=== PATIENT | male | born 1975 | race American Indian/Alaskan Native ===

== ENCOUNTER 2019-06-06 11:03 | Outpatient (CLI) | payer OTHER ==
[2019-06-06 11:41] LABS: Hematocrit 31.6 % (35.5-45.6); Hemoglobin 10.5 gm/dl (11.8-15.2); Mean Corpuscular HGB Conc 33 % (32-34); Mean Corpuscular Volume 84 fl (84-94); Platelet Count 187 K/mm3 (140-440); Red Blood Count 3.77 M/mm3 (3.65-5.03)
[2019-06-06 11:50] LABS: Red Cell Distribution Width 25.9 % (13.2-15.2)
[2019-06-06 11:54] LABS: Alanine Aminotransferase 8 units/L (7-56); Albumin 4.1 g/dL (3.9-5); BUN/Creatinine Ratio 18; Blood Urea Nitrogen 11 mg/dL (9-20); Hemolysis Index 6
[2019-06-06 13:14] LABS: Band Neutrophils # (Manual) 0.1 K/mm3; Basophils % (Manual) 0 % (0.0-1.8); Total Cells Counted 100
[2019-06-06 13:18] LABS: Anisocytosis 2+
[2019-06-06 13:21] LABS: Ovalocytes Few
[2019-06-06 13:24] LABS: Platelet Estimate Consistent w Auto
== END 2019-06-06 11:04 | disposition home or self-care (01) ==
LOC: LAB 11:03
PROVIDERS: ATTEND Radiology Radiation Oncology
DX: C83.09 Small cell B-cell lymphoma, extranodal and solid organ sites (principal)
CPT/HCPCS: 36415; 80053; 83735; 85007; 85025

== ENCOUNTER 2019-06-25 22:11 | Emergency (ER) | payer OTHER ==
[2019-06-26 00:16] VITALS: BP 110/78
--- NOTE | 2019-06-26 01:01 | Emergency Department Report ---
ED ENT HPI - General Chief complaint: Dental/Oral Stated complaint: TOOTHACHE Time Seen by Provider: 06/26/19 00:56 Source: patient Mode of arrival: Ambulatory Limitations: No Limitations - History of Present Illness Initial comments: Vanessa is a 44 yo person without significant past medical hx who presents with "abscessed tooth". Has mild swelling at right jaw with multiple bad teeth. No difficulty swallowing. No shortness of breath. No fever. MD complaint: tooth pain, other (jaw swelling) -: Gradual, days(s) (several) Location: tooth # (28-30) Severity: mild Severity scale (0 -10): 6 Quality: aching Consistency: constant Worsens with: eating Context- Dental: history of dental caries Associated Symptoms: gum swelling - Related Data Previous Rx's Medication Instructions Recorded Last Taken Type Penicillin V Potassium 500 mg PO QID 7 Days #28 tablet 06/26/19 Unknown Rx Allergies Allergy/AdvReac Type Severity Reaction Status Date / Time No Known Allergies Allergy Unverified 06/06/19 11:03 ED Dental HPI - General Chief complaint: Dental/Oral Stated complaint: TOOTHACHE Time Seen by Provider: 06/26/19 00:56 Source: patient Mode of arrival: Ambulatory Limitations: No Limitations - Related Data Previous Rx's Medication Instructions Recorded Last Taken Type Penicillin V Potassium 500 mg PO QID 7 Days #28 tablet 06/26/19 Unknown Rx Allergies Allergy/AdvReac Type Severity Reaction Status Date / Time No Known Allergies Allergy Unverified 06/06/19 11:03 ED Review of Systems ROS: Stated complaint: TOOTHACHE Other details as noted in HPI Constitutional: denies: fever, malaise ENT: dental pain. denies: congestion Respiratory: denies: shortness of breath Skin: denies: rash, lesions ED Past Medical Hx - Social History Smoking Status: Current Every Day Smoker Substance Use Type: None - Medications Home Medications: Home Medications Medication Instructions Recorded Confirmed Last Taken Type Penicillin V Potassium 500 mg PO QID 7 Days #28 tablet 06/26/19 Unknown Rx ED Physical Exam - General Limitations: No Limitations General appearance: alert, in no apparent distress, other (appears well, subtle mild swelling submandibular region right side) - Head Head exam: Present: atraumatic, normocephalic - Eye Eye exam: Present: normal appearance. Absent: scleral icterus, conjunctival injection - ENT ENT exam: Present: other (diffuse teeth decay with tenderness Tooth #28) - Neck Neck exam: Present: normal inspection, full ROM. Absent: tenderness, meningismus - Respiratory Respiratory exam: Absent: respiratory distress - Neurological Exam Neurological exam: Present: alert, oriented X3 - Psychiatric Psychiatric exam: Present: normal affect, normal mood - Skin Skin exam: Present: warm, dry, intact, normal color ED Course Vital Signs 06/25/19 22:31 Temperature 98.6 F Pulse Rate 79 Respiratory 20 Rate Blood Pressure 110/78 O2 Sat by Pulse 98 Oximetry ED Medical Decision Making - Medical Decision Making odontogenic infection with minimal swelling at the submandibular region, rx: pcn Critical care attestation.: If time is entered above; I have spent that time in minutes in the direct care of this critically ill patient, excluding procedure time. ED Disposition Clinical Impression: Dental abscess Disposition: DC- TO HOME OR SELFCARE Is pt being admited?: No Does the pt Need Aspirin: No Condition: Stable Instructions: Dental Abscess (ED) Prescriptions: Penicillin V Potassium 500 mg PO QID 7 Days #28 tablet Referrals: [facility] [Outside] - 3-5 Days [facility] [Outside] - 3-5 Days Forms: Work/School Release Form(ED)
== END 2019-06-26 01:05 | disposition home or self-care (01) ==
LOC: ED 22:11
DX: K04.7 Periapical abscess without sinus (principal); F17.200 Nicotine dependence, unspecified, uncomplicated
CPT/HCPCS: 99282

== ENCOUNTER 2021-01-15 05:02 | Emergency (ER) | payer OTHER ==
[2021-01-15 05:21] VITALS: BP 127/89
[2021-01-15 05:53] LABS: Basophils % (Auto) 1.3 % (0.0-1.8); Eosinophils % (Auto) 0.6 % (0.0-4.3); Lymphocytes # (Auto) 1.5 K/mm3 (1.2-5.4); Lymphocytes % (Auto) 54.3 % (13.4-35.0); Mean Corpuscular HGB Conc 36 % (32-34); Mean Corpuscular Volume 89 fl (84-94); Monocytes # (Auto) 0.1 K/mm3 (0.0-0.8); Monocytes % (Auto) 4.9 % (0.0-7.3); Platelet Count 262 K/mm3 (140-440); Red Blood Count 4.12 M/mm3 (3.65-5.03); Red Cell Distribution Width 14.7 % (13.2-15.2)
[2021-01-15 05:56] LABS: Hematocrit 36.5 % (35.5-45.6); Hemoglobin 13.3 gm/dl (11.8-15.2)
[2021-01-15 06:14] LABS: Alanine Aminotransferase 23 units/L (7-56); Albumin 4.3 g/dL (3.9-5); BUN/Creatinine Ratio 25; Blood Urea Nitrogen 20 mg/dL (9-20); Hemolysis Index 22
== END 2021-01-15 13:15 | disposition left against medical advice (07) ==
LOC: ED 05:02
DX: R10.9 Unspecified abdominal pain (principal); Z53.21 Procedure and treatment not carried out due to patient leaving prior to being seen by health care provider
CPT/HCPCS: 36415; 80053; 85025